=== PATIENT | male | born 1945 | race Caucasian/White ===

== ENCOUNTER 2020-03-12 08:02 | Emergency (ER) | payer MEDICARE ==
[~2020-03-12 08:02] MED LIST: Aspirin Chewable 81 MG TAB ONE
[2020-03-12] MEDS ORDERED: Aspirin Chewable 81 MG TAB ONE (08:19)
[2020-03-12] MEDS ORDERED: Nitroglycerin 0.4 MG TAB 1 EACH ONE (08:19)
[2020-03-12 08:27] LABS: #Eosinphils 0.1 thou/uL (0.0-0.7); #Lymphocytes 1.5 thou/uL (1.20-3.40); #Monocytes 0.7 thou/uL (0.11-0.59); #Neutrophils 4.2 thou/uL (1.40-6.50); %Basophils 0.7 % (0.0-1.0); %Eosinophils 1.5 % (0.0-10.0); %Lymphocytes 22.5 % (21.0-51.0); %Monocytes 10.8 % (0.0-10.0); %Neutrophils 64.5 % (42.0-75.0); Hemoglobin 16.5 g/dL (14.0-18.0); Mean Corpuscular Hemoglobin 29.8 pg (27.0-31.0); Mean Corpuscular Volume 92.9 fL (78.0-98.0); Mean Platelet Volume 10.3 fL (7.4-10.4); Platelet Count 185 thou/uL (130-400); RBC Distribution Width 11.8 % (11.5-14.5); Red Blood Cell (RBC) Count 5.54 mill/uL (4.70-6.10); White Blood Cell (WBC) Count 6.5 thou/uL (4.8-10.8)
[2020-03-12 08:39] LABS: Anion Gap 21 mmol/L (10-20); BUN (Urea Nitrogen) 25 mg/dL (8.4-25.7); Calc. Creatinine Clearance 0 mL/min (70-130); Carbon Dioxide 21 mmol/L (23-31); Chloride 101 mmol/L (98-107); Potassium 3.8 mmol/L (3.5-5.1); Sodium 139 mmol/L (136-145)
[2020-03-12 08:40] LABS: ALT (SGPT) 20 U/L (8-55); AST (SGOT) 29 U/L (5-34); Albumin 4.3 g/dL (3.4-4.8); Alkaline Phosphatase 88 U/L (40-110); CK (CPK) 274 U/L (30-200); Calcium 9.5 mg/dL (7.8-10.44); Globulin 3.4 g/dL (2.4-3.5); Glucose 157 mg/dL (83-110); Lipase 18 U/L (8-78); Protein, Total 7.7 g/dL (5.8-8.1)
[2020-03-12 08:44] LABS: INR-International Normal Ratio 0.9; PTT 25.2 sec (22.9-36.1); Prothrombin Time 12.3 sec (12.0-14.7)
[2020-03-12] MEDS ORDERED: Heparin 5,000 UNITS/ML VIAL ONE (08:46)
[2020-03-12] MEDS ORDERED: Ondansetron PF 4 MG/2 ML Vial ONE (08:46)
[2020-03-12] MEDS ORDERED: Sodium Chloride 0.9% 1,000 ML ONE (08:46)
[2020-03-12 08:48] LABS: CKMB 3.9 ng/mL (0-6.6)
--- NOTE | 2020-03-12 09:29 | RAD ---
PORTABLE CHEST 1 VIEW: Date: 03/12/2020 Time: 0827 hours HISTORY: Chest pain. COMPARISON: 10/10/2014. FINDINGS: The heart size is normal. No lobar consolidation, pneumothoraces, nola pulmonary edema, or pleural e ffusions are seen. There are postop changes of metallic hardware in the lower cervical spine. IMPRESSION: No acute process. POS: OFF
[2020-03-12] MEDS ORDERED: Morphine 2 MG/ML VIAL ONE (10:46)
[2020-03-12] MEDS ORDERED: TICAGRELOR 90 MG TABLET ONE (11:09)
== END 2020-03-12 08:55 | disposition short-term general hospital (02) ==
LOC: MADERS 08:02
DX: I21.19 ST elevation (STEMI) myocardial infarction involving other coronary artery of inferior wall (principal); Z85.528 Personal history of other malignant neoplasm of kidney
CPT/HCPCS: 71045; 80053; 82550; 82553; 83690; 83880; 84484; 85025; 85610; 85730; 93005; 94760; J1644; J2270; J2405; J7050

== ENCOUNTER 2022-06-11 08:53 | Emergency (ER) | payer MEDICARE ==
[2022-06-11] MEDS ORDERED: Iopamidol 370 76% 100 ML VIAL ONE (09:08)
[2022-06-11 09:31] LABS: #Eosinphils 0.1 thou/uL (0.0-0.7); #Lymphocytes 0.4 thou/uL (1.20-3.40); #Monocytes 0.4 thou/uL (0.11-0.59); #Neutrophils 4.6 thou/uL (1.40-6.50); %Basophils 0.9 % (0.0-1.0); %Eosinophils 1.9 % (0.0-10.0); %Lymphocytes 7.6 % (21.0-51.0); %Monocytes 7.1 % (0.0-10.0); %Neutrophils 82.5 % (42.0-75.0); Hemoglobin 14.3 g/dL (14.0-18.0); Mean Corpuscular HGB CONC 31.9 g/dL (32.0-36.0); Mean Corpuscular Hemoglobin 31.6 pg (27.0-31.0); Mean Platelet Volume 16.2 fL (7.4-10.4); Platelet Count 131 10x3/uL (130-400); RBC Distribution Width 13.6 % (11.5-14.5); Red Blood Cell (RBC) Count 4.52 mill/uL (4.70-6.10); White Blood Cell (WBC) Count 5.6 10x3/uL (4.8-10.8)
[2022-06-11 09:33] LABS: INR-International Normal Ratio 1.2; Prothrombin Time 16.1 sec (12.0-14.7)
[2022-06-11 09:34] LABS: PTT 32.9 sec (22.9-36.1)
[2022-06-11 09:42] LABS: ALT (SGPT) 88 U/L (8-55); AST (SGOT) 77 U/L (5-34); Albumin 3.9 g/dL (3.4-4.8); Alkaline Phosphatase 159 U/L (40-110); Anion Gap 19 mmol/L (10-20); BUN (Urea Nitrogen) 18 mg/dL (8.4-25.7); Bilirubin, Total 0.9 mg/dL (0.2-1.2); Calc. Creatinine Clearance 0 mL/min (70-130); Carbon Dioxide 23 mmol/L (23-31); Chloride 106 mmol/L (98-107); Estimated GFR 53; Glucose 103 mg/dL (83-110); Potassium 4.2 mmol/L (3.5-5.1); Protein, Total 6.9 g/dL (5.8-8.1); Sodium 144 mmol/L (136-145)
[2022-06-11 09:50] LABS: Giant Platelets SLIGHT; Large Platelets SLIGHT; Platelet Adequacy Comment Appears Adequate
[2022-06-11] MEDS ORDERED: Sodium Chloride 0.9% 1,000 ML ONE (11:11)
[2022-06-11] MEDS ORDERED: Furosemide 20 MG/2 ML VIAL ONE (12:17)
[2022-06-11 12:44] LABS: SARS-CoV-2 NAA Rapid Test Not Detected (NotDetected)
== END 2022-06-11 13:16 | disposition short-term general hospital (02) ==
LOC: MADERS 08:53
DX: I11.0 Hypertensive heart disease with heart failure (principal); I50.9 Heart failure, unspecified; J18.9 Pneumonia, unspecified organism; R09.02 Hypoxemia; I25.2 Old myocardial infarction; E03.9 Hypothyroidism, unspecified; K21.9 Gastro-esophageal reflux disease without esophagitis; E78.2 Mixed hyperlipidemia; Z20.822 Contact with and (suspected) exposure to COVID-19; Z79.01 Long term (current) use of anticoagulants; Z79.899 Other long term (current) drug therapy; Z87.891 Personal history of nicotine dependence
CPT/HCPCS: 71046; 71260; 80053; 83880; 84484; 85025; 85610; 85730; 93005; 96374; J1940; J7050; Q9967; U0002

== ENCOUNTER 2022-10-27 23:59 | Emergency (ER) | payer MEDICARE ==
[2022-10-28 00:47] LABS: Bilirubin Large (Negative); Blood, Urine Large (Negative); Glucose, Urine (Dipstick) 500 mg/dL (Negative); Ketone, Urine > or equal to 80 mg/dL (Negative); Leukocyte Large (Negative); Nitrite Positive (Negative); Protein, Urine (Dipstick) > or equal to 300 mg/dL (Neg-Trace); Urobilinogen > or = 8.0 mg/dL (Less than 2)
[2022-10-28] MEDS ORDERED: Sodium Chloride 0.9% 500 ML ONE ×2 (00:48→03:12)
[2022-10-28 00:56] LABS: Clarity Bloody (Clear); pH, Urine Greater/Equal 9.0 (5.0-9.0)
[2022-10-28 00:57] LABS: CAUTI Indications for Culture Dysuria,urgency,freq; RBC/HPF Greater than 50 HPF (0-3)
[2022-10-28 00:58] LABS: INR-International Normal Ratio 1.4; Prothrombin Time 17.4 sec (12.0-14.7)
[2022-10-28 00:58] LABS: Urine Culture Reflex No No
[2022-10-28 01:01] LABS: ALT (SGPT) 16 U/L (8-55); AST (SGOT) 28 U/L (5-34); Albumin 3.6 g/dL (3.4-4.8); Alkaline Phosphatase 82 U/L (40-110); Anion Gap 15 mmol/L (10-20); BUN (Urea Nitrogen) 33 mg/dL (8.4-25.7); Bilirubin, Total 0.4 mg/dL (0.2-1.2); Calc. Creatinine Clearance 0 mL/min (70-130); Calcium 8.7 mg/dL (7.8-10.44); Carbon Dioxide 24 mmol/L (23-31); Chloride 105 mmol/L (98-107); Estimated GFR 20; Globulin 2.9 g/dL (2.4-3.5); Glucose 89 mg/dL (83-110); Potassium 4.3 mmol/L (3.5-5.1); Protein, Total 6.5 g/dL (5.8-8.1); Sodium 140 mmol/L (136-145)
[2022-10-28 01:04] LABS: #Basophils 0.1 thou/uL (0.0-0.2); #Eosinphils 0.2 thou/uL (0.0-0.7); #Lymphocytes 0.5 thou/uL (1.20-3.40); #Monocytes 0.4 thou/uL (0.11-0.59); #Neutrophils 3.9 thou/uL (1.40-6.50); %Basophils 1.3 % (0.0-1.0); %Eosinophils 3.6 % (0.0-10.0); %Lymphocytes 10.7 % (21.0-51.0); %Monocytes 7.4 % (0.0-10.0); Hematocrit 34.2 % (42.0-52.0); Hemoglobin 10.9 g/dL (14.0-18.0); Mean Corpuscular HGB CONC 31.8 g/dL (32.0-36.0); Mean Corpuscular Hemoglobin 30.4 pg (27.0-31.0); Mean Corpuscular Volume 95.6 fl (78.0-98.0); Mean Platelet Volume 12.8 fL (7.4-10.4); Platelet Adequacy Comment Appears Decreased; Platelet Count 105 10x3/uL (130-400); Red Blood Cell (RBC) Count 3.58 mill/uL (4.70-6.10); White Blood Cell (WBC) Count 5.1 10x3/uL (4.8-10.8)
[2022-10-28] MEDS ORDERED: HUM PROTHROMBIN CPLX(PCC) 1,000 UNITS VIAL ONE (01:48)
[2022-10-28] MEDS ORDERED: Sodium Chloride 0.9% 100 ML ONE (01:48)
[2022-10-28] MEDS ORDERED: cefTRIAXone (ROCEPHIN) 2 GM VIAL ONE (01:48)
[2022-10-28] MEDS ORDERED: Human Prothrombin Complx(PCC) 500 UNITS VIAL ONE (02:04)
[2022-10-28] MEDS ORDERED: Ondansetron PF 4 MG/2 ML Vial ONE (02:13)
[2022-10-28] MEDS ORDERED: Sodium Chloride 0.9% 1,000 ML ONE (03:12)
== END 2022-10-28 03:56 | disposition short-term general hospital (02) ==
LOC: MADERS 23:59
DX: D64.9 Anemia, unspecified (principal); N17.9 Acute kidney failure, unspecified; D68.9 Coagulation defect, unspecified; N39.0 Urinary tract infection, site not specified; R31.0 Gross hematuria; I13.0 Hypertensive heart and chronic kidney disease with heart failure and stage 1 through stage 4 chronic kidney disease, or unspecified chronic kidney disease; N18.9 Chronic kidney disease, unspecified; I50.9 Heart failure, unspecified; I25.2 Old myocardial infarction; E03.9 Hypothyroidism, unspecified; Z87.891 Personal history of nicotine dependence; Z79.01 Long term (current) use of anticoagulants; Z85.528 Personal history of other malignant neoplasm of kidney; Z85.01 Personal history of malignant neoplasm of esophagus; Z79.899 Other long term (current) drug therapy
CPT/HCPCS: 36430; 74176; 80053; 81001; 85025; 85610; 85730; 86850; 86900; 86901; 87086; 93005; 94760; 96365; 96374; 96375; J0696; J2405; J3490; J7030; J7050; J7168; P9016

== ENCOUNTER 2022-11-19 13:41 | Emergency (ER) | payer MEDICARE ==
[2022-11-19 15:06] LABS: #Eosinphils 0.2 thou/uL (0.0-0.7); #Lymphocytes 0.5 thou/uL (1.20-3.40); #Monocytes 0.5 thou/uL (0.11-0.59); #Neutrophils 4.2 thou/uL (1.40-6.50); %Basophils 0.8 % (0.0-1.0); %Eosinophils 3.1 % (0.0-10.0); %Lymphocytes 9.4 % (21.0-51.0); %Monocytes 9.5 % (0.0-10.0); %Neutrophils 77.1 % (42.0-75.0); Hematocrit 27.1 % (42.0-52.0); Hemoglobin 8.7 g/dL (14.0-18.0); Mean Corpuscular HGB CONC 32.3 g/dL (32.0-36.0); Mean Corpuscular Hemoglobin 32.2 pg (27.0-31.0); Mean Corpuscular Volume 99.8 fl (78.0-98.0); Mean Platelet Volume 11.7 fL (7.4-10.4); Platelet Count 133 10x3/uL (130-400); RBC Distribution Width 17.5 % (11.5-14.5); Red Blood Cell (RBC) Count 2.71 mill/uL (4.70-6.10); White Blood Cell (WBC) Count 5.4 10x3/uL (4.8-10.8)
[2022-11-19 15:20] LABS: ALT (SGPT) 23 U/L (8-55); AST (SGOT) 32 U/L (5-34); Alkaline Phosphatase 89 U/L (40-110); Anion Gap 17 mmol/L (10-20); BUN (Urea Nitrogen) 47 mg/dL (8.4-25.7); Bilirubin, Total 0.4 mg/dL (0.2-1.2); Calc. Creatinine Clearance 0 mL/min (70-130); Calcium 9.3 mg/dL (7.8-10.44); Carbon Dioxide 21 mmol/L (23-31); Chloride 111 mmol/L (98-107); Estimated GFR 21; Glucose 93 mg/dL (83-110); Potassium 4.8 mmol/L (3.5-5.1); Sodium 144 mmol/L (136-145)
[2022-11-19 15:27] LABS: Bilirubin Negative (Negative); Blood, Urine Large (Negative); Glucose, Urine (Dipstick) Negative (Negative); Ketone, Urine Negative (Negative); Leukocyte Negative (Negative); Nitrite Negative (Negative); Protein, Urine (Dipstick) > or equal to 300 mg/dL (Neg-Trace); Urobilinogen 0.2 mg/dL (Less than 2)
[2022-11-19 15:29] LABS: CAUTI Indications for Culture Acute Hematuria; Clarity Bloody (Clear); RBC/HPF Greater than 50 HPF (0-3); Squamous Epithelial None Seen HPF (0-3)
[2022-11-19 15:30] LABS: Bacteria/HPF Rare-Few HPF (None Seen); Urine Culture Reflex No No
[2022-11-19 17:42] LABS: PTT 30.3 sec (22.9-36.1); Prothrombin Time 13.7 sec (12.0-14.7)
== END 2022-11-19 22:26 | disposition short-term general hospital (02) ==
LOC: MADERS 13:41
DX: R31.0 Gross hematuria (principal); R33.9 Retention of urine, unspecified; I11.0 Hypertensive heart disease with heart failure; I50.9 Heart failure, unspecified; E03.9 Hypothyroidism, unspecified; K21.9 Gastro-esophageal reflux disease without esophagitis; E78.00 Pure hypercholesterolemia, unspecified; Z87.891 Personal history of nicotine dependence; Z79.899 Other long term (current) drug therapy
CPT/HCPCS: 36415; 51702; 51798; 71045; 80053; 81001; 85025; 85610; 85730; 86850; 86900; 86901; 87086